=== PATIENT | male | born 1955 | race Caucasian/White ===

== ENCOUNTER 2019-04-12 06:39 | Emergency (ER) | payer OTHER ==
[~2019-04-12] VITALS: Ht 182.9 cm; Wt 90.9 kg
[2019-04-12 09:31] VITALS: BP 115/74
== END 2019-04-12 09:32 | disposition home or self-care (01) ==
LOC: EMS 06:41
DX: S52.132A Displaced fracture of neck of left radius, initial encounter for closed fracture (principal); Z88.1 Allergy status to other antibiotic agents; W01.0XXA Fall on same level from slipping, tripping and stumbling without subsequent striking against object, initial encounter; Y93.89 Activity, other specified; Y92.89 Other specified places as the place of occurrence of the external cause; Y99.8 Other external cause status
CPT/HCPCS: 29105

== ENCOUNTER 2025-05-19 15:25 | Emergency (ER) | payer MEDICARE, OTHER ==
[~2025-05-19] VITALS: Ht 182.9 cm; Wt 88.6 kg
[2025-05-19 15:37] VITALS: TEMP 97.7
[2025-05-19 16:24] LABS: CALCIUM, TOTAL 8.8 mg/dL (8.8-10.5); CREATININE 1.11 mg/dL (0.60-1.30); GLOMERULAR FILTR. RATE CALC > 60 mL/min (>60); GLUCOSE,RANDOM 128 mg/dL (70-110); SODIUM SERUM 138 mmol/L (136-145); UREA NITROGEN, BLOOD 20 mg/dL (7-18)
[2025-05-19 16:29] LABS: PLATELET COUNT (AUTO) 225 K/uL (150-450); RED BLOOD CELL COUNT(AUTO) 5.03 MIL/uL (4.50-5.90); RED CELL DISTRIBUTION WIDTH 14.3 % (11.5-14.5); WHITE BLOOD COUNT (AUTO) 6.0 K/uL (4.5-11.0)
[2025-05-19 16:36] LABS: LACTIC ACID 0.9 mmol/L (0.4-2.0)
[2025-05-19] MEDS: IBUPROFEN 200 MG TABLET PO ONE (17:54)
[2025-05-19 18:14] VITALS: BP 131/92; PULSE 64; RESP 16; O2SAT 100
[2025-05-19] MEDS ORDERED: DOXY-354 PO (18:30)
[2025-05-19] MEDS ORDERED: IBUP-1554 PO (18:30)
[2025-05-19] MEDS ORDERED: COLC-3 PO (18:30)
[2025-05-19] MEDS ORDERED: AMOX-457 PO (18:30)
[2025-05-19] MEDS: COLCHICINE 0.6 MG TABLET PO ONE (18:40)
[2025-05-19] MEDS: AMOX TR/POT CLAV 875 MG/125 MG TABLET PO ONE (18:58)
[2025-05-19] MEDS: DOXYCYCLINE HYCLATE 100 MG TABLET PO ONE (18:58)
== END 2025-05-19 19:13 | disposition home or self-care (01) ==
LOC: EMS 15:25
DX: L03.115 Cellulitis of right lower limb (principal); M10.9 Gout, unspecified; Z98.890 Other specified postprocedural states; Z88.1 Allergy status to other antibiotic agents; Z90.89 Acquired absence of other organs
CPT/HCPCS: 80048; 83605; 84550; 85025; 99284